=== PATIENT | male | born 1965 | race Caucasian/White ===

== ENCOUNTER 2018-07-03 17:41 | Inpatient (IN) ==
[2018-07-03] MEDS ORDERED: Sodium Chloride 0.9% 1,000 ML PRIMARY IV ONE (17:49)
[2018-07-03] MEDS ORDERED: LORazepam 2 MG/1 ML VIAL IVP ONE ×2 (17:49→19:54)
[2018-07-03 18:00] LABS: Hemoglobin [HGB] 18.1 g/dL (14.0-18.0); RED BLOOD COUNT 5.71 10^6/uL (4.70-6.10)
[2018-07-03 18:01] LABS: Hematocrit [HCT] 52.2 % (42.0-52.0); MEAN CORPUSCULAR HEMOGLOBIN 31.6 PG (27-31); MEAN CORPUSCULAR HGB CONC 34.6 g/dL (33-37); MEAN CORPUSCULAR VOLUME 91 FL (80-90); MEAN PLATELET VOLUME 6.6 FL (7.4-12.2)
[2018-07-03 18:02] LABS: BASOPHILS # (AUTO) 0.22 10*3/UL; BASOPHILS % (AUTO) 1.3 % (0-1); EOSINOPHILS # (AUTO) 0.33 10*3/UL; LYMPHOCYTES # (AUTO) 2.02 10*3/uL; MONOCYTES # (AUTO) 1.51 10*3/UL (0.3-0.8); MONOCYTES % (AUTO) 9.1 % (5-15); NEUTROPHILS % (AUTO) 75.4 % (50-80); PLATELET MORPHOLOGY COMMENT NORMAL MORPHOLOGY (NORM); RBC MORPHOLOGY COMMENT NORMAL MORPHOLOGY (NORM); WBC MORPHOLOGY COMMENT NORMAL MORPHOLOGY (NORM)
[2018-07-03 18:09] LABS: BLOOD UREA NITROGEN 18 mg/dL (7-22); SERUM ALBUMIN 4.9 g/dL (3.5-4.8)
[2018-07-03] MEDS ORDERED: Sodium Chloride 0.9% 1,000 ML, Magnesium Sulfate 2gm (Premix) 50 ML with Multivitamin I... IV ONE ×5 (18:19)
[2018-07-03 18:20] LABS: SALICYLATE < 1.0 mg/dl (0-20)
--- NOTE | 2018-07-03 18:20 | PDOC ---
General Adult HPI - General Chief Complaint: Drug / Alcohol Use &/or Abuse Stated Complaint: SEVERE WITHDRAWAL Date Seen by Provider: 07/03/18 Time Seen by Provider: 17:45 Source: POSITIVE: Patient, EMS, Other (Boss) Exam Limitations: POSITIVE: Clinical condition Nurse's Notes Reviewed & Considered: Yes EMS Report Reviewed & Considered: Verbal - History of Present Illness Initial Comment: The patient is a 53-year-old male who is brought to the emergency department with increased confusion and agitation, possible alcohol withdrawal. The patient's boss had apparently not seen him at work for the past week and became concerned and went to check on him this afternoon. When he arrived the patient was very agitated and confused. According to the patient's boss, the patient was talking to a friend approximately a week ago on the phone when his friend shot and killed himself while he was talking to him. His boss reports ever since then he has not shown up to work. He suspects that he has been drinking daily. EMS was initially called. When they arrived on scene the patient was very agitated, confused and hypertensive. They tried for a long time to convince the patient to come with them to the emergency department however he was reluctant. His boss ended up bringing him. On arrival, the patient is very confused. He does not know the month, the season or what town he is in. He is quite agitated. Have you received a tetanus shot in the past 10 years?: Unknown - Patient Home Medications Home Medications: Home Medications Baclofen 07/03/18 Prednisone 07/03/18 - Patient Allergies Allergies/Adverse Reactions: Allergies Allergy/AdvReac Type Severity Reaction Status Date / Time Unable to Assess Allergy Verified 07/03/18 22:58 Past Medical History - heen HEENT History: Denies History Cardiovascular History: Denies History Respiratory History: Denies History Gastrointestinal History: Denies History Genitourinary History: Denies History Endocrine History: Denies History Musculoskeletal History: Denies History Neurological History: Denies History Blood Disorders: Denies History Psychiatric History: Denies History Male Reproductive History: Denies History Cancer History: Denies History In Past Year Been Physically Harmed or Verbally Threatened: No History of MDRO: No Tobacco Use: Unknown If Ever Smoked Type of alcohol normally used: Beer, Hard Liquor In the Past 12 Months, Have Used or Abuse Any Substance: None Previous Surgical History: No Type / Date of Surgery: UNABLE TO ASSESS Significant Family History: No pertinent family hx Past Medical History Reviewed: Reviewed - No Changes ROS - Limitations ROS Limitations: Other (please comment) (The patient is quite confused on arrival. He denies headache or chest pain.) General Adult Exam - General Appearance General Appearance: POSITIVE: Anxious, Other (The patient is awake, he appears anxious and has a lot of sudden quick motor movements) - HEENT HEENT: POSITIVE: Head Inspection Nml, Eyes Inspection Nml, Ears Inspection Nml, Nose Inspection Nml, Pharynx Inspect. Nml, PERRL, EOMI, Dry Mucous Membranes - Neck Neck: POSITIVE: Normal Inspection, Lymphadenopathy - Respiratory Respiratory: POSITIVE: Breath Sounds Normal, Other (He is tachypnea, and arrival) - Cardiovascular Cardiovascular: POSITIVE: Regular Rate & Rhythm, No Murmur Peripheral Pulses: Dorsalis-pedis (R): 2+, Dorsalis-pedis (L): 2+ - Abdomen Abdomen: Soft: (All Quadrants), Denies Tenderness: (All Quadrants) - Skin Skin: POSITIVE: Normal Color, No Rash - Extremities Extremity: Normal ROM: (All Extremities), Normal Inspection: (All Extremities) - Neurological / Psychological Neurological: POSITIVE: Other (He is moving all extremities and does not appear to have any focal neurologic deficits, he does have quick random motor movements, he is orientated only to self does not know where he is or the time of year) General Adult Progress - Results Reviewed by me Xrays/CTs/US Reviewed by me: Yes Discussed with Radiologist: Yes Radiology Findings: CT scan of the head shows no acute findings per radiologist. Lab Results Reviewed by Me: Yes Lab Results:: Laboratory Results 07/03/18 07/03/18 07/03/18 17:15 17:15 17:49 WBC 16.6 H RBC 5.71 Hgb 18.1 H Hct 52.2 H MCV 91 H MCH 31.6 H MCHC 34.6 RDW Coeff of Papi 13.6 Plt Count 416 H MPV 6.6 L Immature Gran % (Auto) 0 Neut % (Auto) 75.4 Lymph % (Auto) 12.2 Stark % (Auto) 9.1 Eos % (Auto) 2.0 Baso % (Auto) 1.3 H Immature Gran # (Auto) 0 Neut # (Auto) 12.50 Lymph # (Auto) 2.02 Stark # (Auto) 1.51 H Eos # (Auto) 0.33 Baso # (Auto) 0.22 WBC Morphology Comment Normal morphology Plt Morphology Comment Normal morphology RBC Morph Comment Normal morphology Sodium 144 Potassium 4.3 Chloride 106 Carbon Dioxide 21 L Anion Gap 17 BUN 18 Creatinine 1.0 Estimated GFR > 60 BUN/Creatinine Ratio 18.00 Glucose 114 H Calculated Osmolality 300.0 H Calcium 9.6 Magnesium 2.2 Total Bilirubin 1.6 H AST 71 H ALT 64 Alkaline Phosphatase 108 Total Creatine Kinase C-Reactive Protein Total Protein 8.1 H Albumin 4.9 H Globulin 3.2 Albumin/Globulin Ratio 1.50 TSH 3.52 Ur Collection Type Urine Color Urine Clarity Urine pH Ur Specific [place] U Specif Grav (Refrac) Urine Protein Urine Glucose (UA) Urine Ketones Urine Occult Blood Urine Nitrate Urine Bilirubin Urine Urobilinogen Ur Leukocyte Esterase Urine RBC Urine WBC Ur Squamous Epith Cells Ur Renal Epithelial Cell Urine Crystals Urine Bacteria Urine Casts Urine Mucus Urine Trichomonas Urine Yeast Ur Culture Indicated? Salicylates < 1.0 Urine Opiates Screen Ur Buprenorphine Ur Oxycodone Screen Urine Methadone Screen Ur Propoxyphene Screen Acetaminophen < 10.0 Barbiturate Screen U Tricyclic Antidepress Phencyclidine Screen Amphetamines Screen U Methamphetamines Scrn Benzodiazepines Screen Cocaine Screen U Marijuana (THC) Screen Serum Alcohol < 10 07/03/18 07/03/18 17:52 21:46 WBC RBC Hgb Hct MCV MCH MCHC RDW Coeff of Papi Plt Count MPV Immature Gran % (Auto) Neut % (Auto) Lymph % (Auto) Stark % (Auto) Eos % (Auto) Baso % (Auto) Immature Gran # (Auto) Neut # (Auto) Lymph # (Auto) Stark # (Auto) Eos # (Auto) Baso # (Auto) WBC Morphology Comment Plt Morphology Comment RBC Morph Comment Sodium Potassium Chloride Carbon Dioxide Anion Gap BUN Creatinine Estimated GFR BUN/Creatinine Ratio Glucose Calculated Osmolality Calcium Magnesium Total Bilirubin AST ALT Alkaline Phosphatase Total Creatine Kinase 202 H C-Reactive Protein < 0.5 Total Protein Albumin Globulin Albumin/Globulin Ratio TSH Ur Collection Type Cath specimen Urine Color Yellow Urine Clarity Clear Urine pH 7.5 Ur Specific [place] 1.015 U Specif Grav (Refrac) 1.015 Urine Protein Negative Urine Glucose (UA) Negative Urine Ketones Negative Urine Occult Blood Trace-intact H Urine Nitrate Negative Urine Bilirubin Negative Urine Urobilinogen 0.2 Ur Leukocyte Esterase Negative Urine RBC 1-3 Urine WBC 1-3 Ur Squamous Epith Cells Few Ur Renal Epithelial Cell None Urine Crystals Few Urine Bacteria None Urine Casts None Urine Mucus None Urine Trichomonas None Urine Yeast None Ur Culture Indicated? Culture not set Salicylates Urine Opiates Screen Negative Ur Buprenorphine Negative Ur Oxycodone Screen Negative Urine Methadone Screen Negative Ur Propoxyphene Screen Negative Acetaminophen Barbiturate Screen Negative U Tricyclic Antidepress Negative Phencyclidine Screen Negative Amphetamines Screen Negative U Methamphetamines Scrn Negative Benzodiazepines Screen Positive H Cocaine Screen Negative U Marijuana (THC) Screen Negative Serum Alcohol CBC and BMP: 07/04/18 04:40 07/04/18 04:40 EKG Interpreted/Reviewed By Me:: Yes EKG Interpretation:: POSITIVE: Normal Sinus Rhythm, Normal Rate, Normal QRS, Normal ST/T - Patient's Progress MDM / ED Course: The patient was quite anxious and agitated on arrival. An IV was established and he received 1 L bolus of normal saline. He also received Ativan 2 mg IV. He did have improvement in his agitation after administration of Ativan. EKG shows sinus rhythm with no acute ST segment changes. His blood work reveals an elevated white count at 16,000 with a normal CRP. The remainder of his blood work was essentially unremarkable. Alcohol level was nondetectable and tox screen was negative with the exception of the benzodiazepine given here in the emergency department. CT scan of his head shows no acute findings per radiologist. The patient did receive a second dose of Ativan secondary to increased agitation after his CT scan. I did talk with the patient's roommate who confirmed that he was drinking heavily for about 5 days, approximately a c ase and a half of beer a day. He states that today he had been sleeping all day and then when they went to check on him he was confused and agitated. At this time the patient's clinical presentation may represent alcohol withdrawal. It is possible that he may have some other nondetectable substance onboard. I did discuss the patient with Dr. Phipps and he is agreed to admit the patient for further care. - Consult Counseled: POSITIVE: Patient, RE: Lab Results, RE: Radiology Results, RE: DX, RE: Need for F/U Patient Care Time - Estimated PCT Patient Care Time (In Minutes): 45 Vital Signs - VS Reviewed Vital Signs Reviewed: Yes Discharge Clinical Impression: Alcohol withdrawal, Altered mental status Discharge Disposition: Admit to Inpatient Condition: Fair Date Decision to Admit to Inpatient: 07/03/18 Time Decision to Admit to Inpatient: 22:30
--- NOTE | 2018-07-03 20:50 | DI ---
EXAM: CT Head Without Intravenous Contrast CLINICAL HISTORY: Confusion TECHNIQUE: Axial computed tomography images of the head/brain without intravenous contrast. COMPARISON: No relevant prior studies available. FINDINGS: Brain: No acute infarct, hemorrhage, mass or edema. No significant white matter disease. Ventricles: Unremarkable. No ventriculomegaly. Bones/joints: Unremarkable. No acute fracture. Soft tissues: Unremarkable. Sinuses: Minimal mucosal thickening in the paranasal sinuses. Mastoid air cells: Partial opacified right mastoid air cells. IMPRESSION: No acute findings.
[2018-07-03 21:50] LABS: BILIRUBIN,URINE NEGATIVE (NEG); CLARITY,URINE CLEAR (CLEAR); COLOR,URINE YELLOW (Y); GLUCOSE, URINE (UA) NEGATIVE (NEG); OCCULT BLOOD,URINE Trace-intact (NEG); PH,URINE 7.5 (5.0-8.5); PROTEIN,URINE NEGATIVE (NEG); UROBILINOGEN,URINE 0.2 EU/dL (0.2)
[2018-07-03 21:56] LABS: URINE SAMPLE TYPE CATH SPECIMEN; URINE SPECIFIC GRAVITY - MAN 1.015
[2018-07-03 21:59] LABS: SQUAMOUS EPITHELIAL CELL,UR FEW; URINE CRYSTALS FEW
[2018-07-03 22:00] LABS: AMPHETAMINE SCREEN NEGATIVE (NEG); CANNABINOID SCREEN,URINE NEGATIVE (NEG); COCAINE SCREEN NEGATIVE (NEG); METHADONE URINE SCREEN NEGATIVE (NEG); METHAMPHETAMINES SCREEN,URINE NEGATIVE (NEG); OPIATE SCREEN,URINE NEGATIVE (NEG)
--- NOTE | 2018-07-03 23:10 | PDOC ---
HPI - History of Present Illness Date of Service: 07/03/18 Time of Service: 23:00 Chief Complaint: Confusion History of Present Illness: This is a 53 years old male unknown medical history who was brought to the hospital for evaluation because of confusion, agitation and possible alcohol withdrawal. According to the ER physician the patient did not show up for work for the past week and his boss went to check on him and found him agitated and confused. The medics were called he was asked to come to the ER eventually his boss brought him to the ER. He was agitated. According to the ER physician his roommate said that he's been drinking a case of beer everyday for the last week. He normally drinks about 4 beers a night. Testing was essentially negative he was giving Ativan that seemed to calm him down. He also received IV fluids and banana bag and was admitted. No meaningful information can be obtained from the patient. He could not tell me his name, his date of . He did not answer why he is in the hospital. He would go back to sleep after waking him up. He is moving all his extremities. Past Medical History Medical History: Unknown. He did say he is not taking any medication. Surgical History: Unknown Past Social History: Apparently he smokes and drinks. Not sure about drugs. Tobacco Use: Unknown If Ever Smoked In the Past 12 Months, Have Used or Abuse Any of the Following Substance: None Medication / Allergies Home Medications: Home Medications Medication Instructions Recorded Confirmed Baclofen 07/03/18 Prednisone 07/03/18 Allergies/Adverse Reactions: Allergies Allergy/AdvReac Type Severity Reaction Status Date / Time Unable to Assess Allergy Verified 07/03/18 22:58 Review of Systems - Review of Systems ROS Unobtainable: Due to Mental Status Exam - Vitals Vital Signs: Vital Signs Temperature 95.8 F Temperature Source Temporal Artery Scan Pulse Rate [Pulse Oximeter 71 Right] Pulse Rate 71 Respiratory Rate 30 Blood Pressure [Left Arm] 184/88 Blood Pressure 184/88 Pulse Ox 97 Oxygen Delivery Method Room Air Height 6 ft Weight 170 lb - General Additional General Exam Details: Patient was laying in bed sleeping but arousable. He is moving all his extremities. Does not appear in distress. - Head Head Exam: Normal Inspection - Eye Eye Exam: POSITIVE: Normal Appearance - ENT ENT Exam: POSITIVE: Normal Exam - Neck Neck Exam: Normal Inspection - Respiratory Respiratory Exam: POSITIVE: Clear to Auscultation - Bilaterally - Cardiovascular Cardiovascular Exam: POSITIVE: RRR - GI/Abdominal GI/Abdominal Exam: POSITIVE: Normal Bowel Sounds, Non Tender, Non Distended, Soft, No Organomegaly - Rectal Rectal Exam: POSITIVE: Deferred - External Exam: POSITIVE: Deferred - Extremities Extremities Exam: POSITIVE: Normal Inspection - Back Back Exam: POSITIVE: Normal Inspection - Neurological Additional Neurological Exam Details: Arousable, moving all extremities symmetrical. No neck stiffness. - Integumentary Integumentary Exam: POSITIVE: Normal Color Results - Labs CBC and BMP: 07/04/18 04:40 07/04/18 04:40 - Imaging Status: Report Reviewed by Me (CT head negative) Assessment and Plan - Patient Problems (1) Alcohol withdrawal Current Visit: Yes Status: Acute Comment: We will put him on CIWA protocol. Will put him on IV fluids and supportive care. Repeat his labs in the morning. Code(s): F10.239 - Alcohol dependence with withdrawal, unspecified
[2018-07-03] MEDS ORDERED: LIDOCAINE W/ SODIUM BICARB 0.5 ML SYR SUBD PRN (23:26)
[2018-07-03] MEDS ORDERED: ONDANSETRON 4 MG/2 ML VIAL IVP PRN (23:26)
[2018-07-03] MEDS ORDERED: MAG HYDROX/AL HYDROX/SIMETH 30 ML SUSP PO PRN (23:26)
[2018-07-03] MEDS ORDERED: LORazepam 1 mg tab (ETOH withdrawal) PO PRN (23:26)
[2018-07-03] MEDS ORDERED: MAGNESIUM 400 MG/5 ML - 30 ML (MILK OF MAGNESIA) PO PRN (23:26)
[2018-07-03] MEDS ORDERED: Loperamide Tab 2 MG TABLET PO PRN (23:26)
[2018-07-03] MEDS: LORazepam Inj(ETOH withdrawal) 2 MG/ML VIAL IVP PRN (23:52)
[2018-07-04] MEDS: Sodium Chloride 0.9% 1,000 ML PRIMARY IV SCH ×2 (01:31→10:41)
[2018-07-04] MEDS: LORazepam Inj(ETOH withdrawal) 2 MG/ML VIAL IVP PRN ×6 (01:32→11:35)
[2018-07-04 05:09] LABS: BLOOD UREA NITROGEN 20 mg/dL (7-22); BUN/CREATININE RATIO 22.22 (6-20); LIPASE 34 IU/L (23-300)
--- NOTE | 2018-07-04 05:34 | EKG ---
[address] [address] Measurements Intervals [place] Rate: 55 P: 57 IA: 149 QRS: 65 QRSD: 117 T: 72 QT: 451 QTc: 440 Interpretive Statements SINUS BRADYCARDIA MODERATE INTRAVENTRICULAR CONDUCTION DELAY No previous ECG available for comparison Electronically Signed On 07-04-18 17:56:17 MDT by Darien Reyna [id number]
[2018-07-04] MEDS ORDERED: Sodium Chloride 0.9% 1,000 ML PRIMARY IV ONE (05:54)
[2018-07-04 06:01] LABS: Hemoglobin [HGB] 16.3 g/dL (14.0-18.0); MEAN CORPUSCULAR VOLUME 91 FL (80-90); RED BLOOD COUNT 5.26 10^6/uL (4.70-6.10)
[2018-07-04 06:02] LABS: BAND NEUTROPHILS % 0 % (0-10); BASOPHILS % (MANUAL) 0 % (0-1); EOSINOPHILS % (MANUAL) 2 % (0-8); MEAN CORPUSCULAR HEMOGLOBIN 31.1 PG (27-31); MEAN CORPUSCULAR HGB CONC 34.1 g/dL (33-37); MEAN PLATELET VOLUME 7.3 FL (7.4-12.2); METAMYELOCYTES % 0 %; MONOCYTES % (MANUAL) 6 % (0-12); MYELOCYTES % 0 %; NEUTROPHILS % (MANUAL) 72 % (50-80); PLATELET MORPHOLOGY COMMENT NORMAL MORPHOLOGY (NORM); PROMYELOCYTES % 0 %; RBC MORPHOLOGY COMMENT NORMAL MORPHOLOGY (NORM); WBC MORPHOLOGY COMMENT NORMAL MORPHOLOGY (NORM)
[2018-07-04] MEDS ORDERED: LIDOCAINE HCL 2 % 10 ML JELLY URO-JECT TOPICAL ONE (07:14)
--- NOTE | 2018-07-04 08:45 | PDOC(PROG) ---
Date of Service: 07/04/18 Time of Service: 08:00 Interval History: Subjective Patient is sleepy but arousable, today he was able to tell me his name and his date of . He denied having medical issues. However he answers a few questions and then goes back to sleep. He doesn't know how did he end up in the hospital. I told him that his roommate said that he's been drinking a case of beer a day he said no but he said a few a day. Objective : Data - Labs CBC and BMP: 07/04/18 04:40 07/04/18 04:40 Objective : Exam - General General Appearance: No Acute Distress Additional General Exam Details: Sleepy but arousable. Follow and answers some of the commands and questions. - Head Head Exam: Normal Inspection - Eye Eye Exam: Normal Appearance - ENT ENT Exam: Normal Exam - Neck Neck Exam: Normal Inspection - Respiratory Respiratory Exam: Clear to Auscultation - Bilaterally - Cardiovascular Cardiovascular Exam: RRR - GI/Abdominal GI/Abdominal Exam: Normal Bowel Sounds, Non Tender, Non Distended, Soft, No Organomegaly - Rectal Rectal Exam: Deferred - External Exam: Deferred - Extremities Extremities Exam: Normal Inspection - Back Back Exam: Normal Inspection - Neurological Neurological Exam: CN II-XII Intact, No Facial Droop, Moves All Extremities Equally Additional Neurological Exam Details: Sleepy but arousable, moving all extremities. Not in distress. Continue me his name and his date of . - Psychiatric Psychiatric Exam: Normal Affect Assessment and Plan - Patient Problems (1) Alcohol withdrawal Current Visit: Yes Status: Acute Comment: Continue CIWA protocol. Continue IV fluid. Continue multivitamins. Code(s): F10.239 - Alcohol dependence with withdrawal, unspecified
[2018-07-04] MEDS ORDERED: PANTOPRAZOLE IV 40 MG VIAL IVP SCH (09:00)
[2018-07-04] MEDS ORDERED: Lactated Ringers 1,000 ML PRIMARY IV SCH ×2 (09:00→11:38)
[2018-07-04] MEDS ORDERED: MAGNESIUM OXIDE 400 MG TABLET PO SCH ×2 (09:00→21:00)
[2018-07-04] MEDS ORDERED: LIDOCAINE HCL 2 % 10 ML JELLY URO-JECT TOPICAL PRN (10:09)
[2018-07-04] MEDS ORDERED: LORazepam 2 MG/1 ML VIAL IVP ONE ×3 (10:52→12:53)
[2018-07-04] MEDS ORDERED: Dexmedetomidine/NS 400 MCG/100 ML INFUS..BTL IV SCH ×2 (11:30→11:38)
[2018-07-04] MEDS ORDERED: LORazepam 1 mg tab (ETOH withdrawal) PO PRN (11:38)
[2018-07-04] MEDS ORDERED: MAGNESIUM 400 MG/5 ML - 30 ML (MILK OF MAGNESIA) PO PRN (11:38)
[2018-07-04] MEDS ORDERED: ONDANSETRON 4 MG/2 ML VIAL IVP PRN (11:38)
[2018-07-04] MEDS ORDERED: LIDOCAINE W/ SODIUM BICARB 0.5 ML SYR SUBD PRN (11:38)
[2018-07-04] MEDS ORDERED: MAG HYDROX/AL HYDROX/SIMETH 30 ML SUSP PO PRN (11:38)
[2018-07-04] MEDS ORDERED: LORazepam Inj(ETOH withdrawal) 2 MG/ML VIAL IVP PRN (11:38)
[2018-07-04] MEDS ORDERED: Loperamide Tab 2 MG TABLET PO PRN (11:38)
[2018-07-04] MEDS ORDERED: PHENOBARBITAL SODIUM 65 MG/1 ML VIAL IVP ONE ×2 (11:48→12:26)
[2018-07-04] MEDS ORDERED: PHENOBARBITAL SODIUM 65 MG/1 ML VIAL ONE ×2 (11:51→12:27)
[2018-07-04] MEDS ORDERED: DIAZEPAM 10 MG/2 ML (5 MG/1 ML) CARPUJECT ONE (12:07)
[2018-07-04] MEDS ORDERED: DIAZEPAM 10 MG/2 ML (5 MG/1 ML) CARPUJECT IVP ONE (12:07)
[2018-07-04] MEDS ORDERED: SUCCINYLCHOLINE CHLORIDE 20 MG/1 ML - 10 ML ONE (13:13)
--- NOTE | 2018-07-04 14:17 | DI ---
AP CHEST X-RAY, 07/04/2018 1:52 PM : Clinical History: Refractory delirium tremens. Status post intubation. Verification of tube placement . Previous Exam: None at this facility. Soft Tissues: No acute soft tissue abnormality. Bones: Normal. Heart: Normal heart. Lungs: No infiltrates. Effusion(s): None. Mediastinum: Normal mediastinum. Nodules: No pulmonary nodules. Additional Findings: The endotracheal tube tip is approximately 6 cm above the catarina and can be adva nced 3 cm. The nasogastric tube is in the mid portion of the esophagus and can be advanced at least 2 0 cm. Readin. Normal chest x-ray. 2. Both the endotracheal tube and a nasogastric tube can be advanced as above. This information was discussed with the attending hospitalist at 1410 hours.
--- NOTE | 2018-07-04 14:29 | DCSUMMARY ---
Hospitalization Summary Admit Date: 07/03/2018 Discharge Date: 07/04/18 Hospital Course: Transfer diagnoses 1. Confusion, agitation like secondary to severe alcohol withdrawal 2. Patient intubated for airway protection Hospital course This is a 53 years old male with no significant past medical history who was brought to the hospital for evaluation because of confusion, agitation and possible alcohol withdrawal. According to the ER physician the patient did not show up for work for the past week and his boss went to check on him and found him agitated and confused. The medics were called and he was asked to come to the ER but eventually his boss brought into the ER. He was agitated. According to the ER physician his roommate said that he's been drinking a case of beer every day for the last week. He normally drinks 4 beers at night. Testing was essentially negative he was given Ativan and that seemed to calm him down. He was also given IV fluid and banana bag. By the time he came into the floor he was arousable but no meaningful information can be obtained from him. He could not tell me his name or his date of . He could not tell me why he is in the hospital. He would go back to sleep after waking him up. He was moving all his limbs and did not seem to have a focal deficit. There was no neck stiffness. He was admitted to the hospital was put on CIWA scale and IV fluid. In the morning he was able to tell me his name, his date of but he didn't know why he is in the hospital. He said he doesn't take any medication. He did admit to drinking but said he drinks a few beers a day. Was doing okay on the CWIA scale until noon time when he became more agitated more confused combative we gave him rounds of Ativan, phenobarbitone, Valium and was put also on maximum Precedex infusion. He need it 4 people to hold him down. After calming him down which took more than an hour we felt it is best to protect his airway as his breathing seemed to be hard and irregular so he was intubated and put on propofol drip. Did ask Dr. Loja to help with intubation. He was put on mechanical ventilation and I spoke with Dr. Daigle the rating clerk at [facility] and she accepted the patient for transfer. We we did reposition the ETT and NG tube after the chest x-ray. He was put on total volume 500, rate of 16, FiO2 of 50%. Blood gas showed pH of 7.39, PO2 97, CO2 35. Transfer instruction Diet nothing by mouth Medications Active Medications Al Hydroxide/Mg Hydroxide (Mylanta Liquid) 30 ml PO Q2H PRN PRN Reason: GI Upset Patient is on propofol infusion. Documented by: Lactated Ringer's (Lr) 1,000 mls @ 125 mls/hr PRIMARY IV .Q8H [facility] Last Admin: 07/04/18 11:55 Dose: 125 mls/hr Documented by: Sodium Chloride (Normal Saline 0.9%) 25 mls @ 200 mls/hr IV .Post Infusion PRN PRN Reason: Flush Lidocaine HCl (Lidocaine Buffered Inj) 0.5 ml SUBD ONCE PRN PRN Reason: IV Starts Loperamide HCl (Imodium) 2 - 4 mg PO .See Instructions PRN PRN Reason: Loose Stool Lorazepam (Ativan Inj (Etoh Withdrawal)) 1 - 4 mg IVP .PER CIWA-AR PRN PRN Reason: CIWA-Ar score >8 Lorazepam (Ativan Tab(Etoh Withdrawal)) 1 - 4 mg PO .PER CIWA-AR PRN PRN Reason: CIWA-Ar >8 Magnesium Hydroxide (Milk Of Magnesia Susp) 30 ml PO Q12H PRN PRN Reason: Constipation Magnesium Oxide (Mag-Ox) 400 mg PO BID [facility] Stop: 07/08/18 08:59 Multivitamins Therapeutic (Thera Tab) 1 tab PO DAILY [facility] Ondansetron HCl (Zofran Inj) 4 - 8 mg IVP Q6H PRN PRN Reason: Nausea/Vomiting Pantoprazole Sodium (Protonix Inj) 40 mg IVP DAILY [facility] Thiamine HCl (Vitamin B-1) 100 mg PO DAILY [facility] Follow-up per [facility] post discharge. Exam - Vitals Vital Signs: Vital Signs Temperature 98.8 F Temperature Source Oral Pulse Rate [Pulse Oximeter 97 Right] Pulse Rate [right] 82 Pulse Rate 94 Respiratory Rate 20 Blood Pressure [Right Arm] 148/124 Blood Pressure [Left Arm] 184/88 Blood Pressure 166/103 Pulse Ox [right] 94 Pulse Ox 96 Oxygen Flow Rate 1 Oxygen Delivery Method [right] Room Air Oxygen Delivery Method Room Air Height 6 ft Weight 174 lb 12.8 oz Patient Problems - Patient Problem List (1) Alcohol withdrawal Current Visit: Yes Status: Acute Code(s): F10.239 - Alcohol dependence with withdrawal, unspecified Category: Medical
--- NOTE | 2018-07-04 14:38 | DI ---
AP CHEST X-RAY, 07/04/2018 2:12 PM : Clinical History: DTs. Repositioning of endotracheal tube. Verification of tube position. Previous Exam: Earlier today at 1350 hours. Endotracheal Tube Position: The endotracheal tube remains about 6-6.5 cm above the catarina. NG Tube: The tip is now in the stomach. Heart: Normal heart. Lungs: No infiltrates. Effusion(s): None. Mediastinum: Normal mediastinum. Reading: Normal chest x-ray. The ET tube remains 6 cm above the catarina and can be advanced about 3 cm.
--- NOTE | 2018-07-04 14:52 | PROCEDURE1 ---
Procedure - - Date and Time of Service: June, approximately 1300 hrs. Procedure Performed: Other (Intubation) Procedure Note: Procedure Performed: [] Date Procedure Performed: [] Indications for Procedure: [] Diagnosis: [] Patient Profile: [] Anesthesia: [] Description of Procedure: [] I was called to the ICU because of the patient that could become extremely agitated and was in need of intubation to protect his airway. Patient was in the ICU because of delirium tremens with withdrawal from alcohol. Prior to my arrival patient had received Ativan, Valium, and phenobarbital all in multiple doses and was still fighting. At the time I arrived Dr. Ruthie Phipps, the attending hospitalist, a respiratory therapist, and 3 nurses were actively engaged in trying to restrain the patient who was sweating profusely and battling hard. I ordered 50 mg of Benadryl and 5 mg of Haldol. By the time the nurse arrived with those medications patient had struggled hard enough to dislodge 2 IV sites. Medications were given IM and patient was physically restrained until the medications took effect and he went to sleep. He was monitored in the emergency room and as I watched the trend of his oxygenation he trended down from 96% down to 86% on room air and was working hard to breathe. Decision was made to intubate him to protect his airway. He received a 40 mg preintubation bolus of propofol then after allowing for 5 minutes for this to circulate he received 20 mg of etomidate and 120 mg of succinylcholine. After fasciculations had stopped I was able to use the glide scope to pass a 8 endotracheal tube at the first attempt. The tube was visualized to pass through the cords with the cuff inferior to the cords. Cuff was then inflated and there was good color change on the CO2 monitor and fogging in the tube. Breath sounds were bilateral with no breath sounds appreciated in the belly. An oropharyngeal tube was then placed with difficulty because the patient's dry oral mucosa. Breath sounds were heard in the belly on air being pushed in via a 60 mL syringe. No stomach contents were aspirated. A postintubation chest x- ray was obtained which showed the endotracheal tube above the catarina approximately 6 cm and the oropharyngeal tube terminating at the midpoint of the esophagus. Orders were given to advance the ET tube approximately 3 cm and to advance the endotracheal tube. Patient was started on a propofol drip at 30 mics which was then increased to 50 when the patient began to over breathe the respirator. Care was then turned over to Dr. Phipps.
[2018-07-04] MEDS ORDERED: Propofol 1,000 MG/100 ML VIAL IV SCH (15:00)
--- NOTE | 2018-07-04 15:17 | DI ---
AP CHEST X-RAY, 07/04/2018 2:43 PM : Clinical History: Verification of ET tube position following second adjustment. DTs. Previous Exam: Earlier today at 1416 hours. ET Tube Position: The tip of the endotracheal tube now is in the appropriate location approximately 2 .5-3.0 cm above the catarina. Heart: Normal heart. Lungs: No infiltrates. Effusion(s): None. Mediastinum: Normal mediastinum. Reading: The ET tube now is about 2.5-3.0 cm above the catarina.
[2018-07-04 16:00] LABS: ABG PH 7.39 (7.35-7.45); COLLECTION SITE LEFT RADIAL
[2018-07-04 16:01] LABS: ABG BASE EXCESS -4 MMOL/L (-2-2); ABG OXYGEN SATURATION 97 % (90-100); ABG PCO2 35 MMHG (34-38); ABG PO2 96 MMHG (65-75); ALLEN TEST YES
[2018-07-04 16:16] VITALS: BP 123/75; RESP 16; TEMP 99.1; O2SAT 100
[2018-07-04] MEDS ORDERED: ROCURONIUM 10 MG/1 ML - 5 ML VIAL IVP ONE ×2 (16:38→16:41)
[2018-07-04] MEDS ORDERED: PROPOFOL 10 MG/1 ML (100 ML) IV ONE (17:15)
[2018-07-04] MEDS ORDERED: HALOPERIDOL LACTATE 5 MG/1 ML AMPULE IVP ONE (17:15)
[2018-07-04] MEDS ORDERED: diphenhydrAMINE 50 MG/1 ML VIAL IV ONE (17:15)
[2018-07-04] MEDS ORDERED: ETOMIDATE 2 MG/1 ML - 20 ML IVP ONE (17:15)
[2018-07-05] MEDS ORDERED: PANTOPRAZOLE IV 40 MG VIAL IVP SCH (09:00)
[2018-07-06] MEDS ORDERED: Multivitamin Tab 1 TAB PO SCH ×2 (09:00)
[2018-07-08] MEDS ORDERED: Thiamine Tab 100 MG TAB PO SCH ×2 (23:29)
== END 2018-07-04 17:16 | disposition short-term general hospital (02) | DRG 948 ==
LOC: ER 17:41 → MED/SURG 22:32 → ICU 07-04 11:37
PROVIDERS: ADMIT Internal Medicine; ATTEND Internal Medicine